=== PATIENT | male | born 1965 | race Two or more races ===

== ENCOUNTER 2021-04-27 08:00 | Outpatient (CLI) | payer OTHER | END 2021-04-27 08:30 | disposition home or self-care (01) | LOC: PPH VACUNA 08:00 | PROVIDERS: ATTEND Emergency Medicine Pediatric Emergency Medicine | DX: Z23 Encounter for immunization (principal) ==

== ENCOUNTER 2022-03-31 07:55 | Outpatient (CLI) | payer OTHER | END 2022-03-31 08:00 | disposition home or self-care (01) | LOC: PPH VACUNA 07:55 | PROVIDERS: ATTEND Emergency Medicine Pediatric Emergency Medicine | DX: Z23 Encounter for immunization (principal) ==

== ENCOUNTER 2023-03-31 | Outpatient (CLI) | payer OTHER | END 2023-03-31 00:15 | disposition home or self-care (01) | LOC: PPH VACUNA | PROVIDERS: ATTEND Emergency Medicine Pediatric Emergency Medicine | DX: Z23 Encounter for immunization (principal) | CPT/HCPCS: 90686; G0008 ==